=== PATIENT | male | born 1955 | race Caucasian/White ===

== ENCOUNTER 2023-01-23 21:53 | Emergency (ER) | payer MEDICARE, BC ==
[~2023-01-23] VITALS: Ht 188 cm; Wt 100.0 kg
[2023-01-23 22:26] LABS: CLARITY,URINE CLEAR (Clear); COLOR,URINE YELLOW (Yellow); GLUCOSE, URINE NEGATIVE (Neg); KETONES,URINE NEGATIVE (Neg); LEUKOCYTE ESTERASE ,URINE NEGATIVE (Neg); NITRITES, URINE NEGATIVE (Neg); OCCULT BLOOD,URINE MODERATE (Neg); PROTEIN,URINE NEGATIVE (Neg); UROBILINOGEN,URINE 0.2 E.U/dL (0.2-1.0)
[2023-01-23 22:29] LABS: UA COLLECTION TYPE CLN CATCH MIDSTREAM
[2023-01-23 22:31] LABS: BACTERIA,URINE NONE SEEN /HPF (Neg); MUCUS STRANDS NONE SEEN /LPF (Neg); SQUAMOUS EPITHELIAL CELL,UR FEW /LPF (FEW); WBC,URINE 0-4 /HPF (0-4)
[2023-01-23] MEDS ORDERED: morphine 4 MG/ML inj SYRINge IV ONE (22:35)
[2023-01-23] MEDS ORDERED: ondansetron/PF 4mg/2ml inj IV ONE (22:35)
[2023-01-23] MEDS ORDERED: normal saline 1000ml 1,000 ML IV ONE (22:35)
[2023-01-23 23:02] LABS: EOSINOPHILS # (AUTO) 0.2 X10'3 (0-0.9); LYMPHOCYTES # (AUTO) 0.3 X10'3 (1.1-4.8); WHITE BLOOD COUNT 4.9 X10'3 (4.5-11.0)
[2023-01-23 23:04] LABS: BASOPHILS % (AUTO) 0.8 % (0-1); EOSINOPHILS % (AUTO) 4.4 % (0-6); HEMATOCRIT 39.8 % (42.0-52.0); HEMOGLOBIN 13.5 g/dl (14.0-17.9); LYMPHOCYTES % (AUTO) 6.8 % (21-51); MEAN CORPUSCULAR HEMOGLOBIN 29.3 PG (27.0-31.0); MEAN CORPUSCULAR HGB CONC 33.8 g/dL (33.0-36.5); MEAN CORPUSCULAR VOLUME 86.6 FL (78-98); MEAN PLATELET VOLUME 8.2 FL (7.4-10.4); MONOCYTES # (AUTO) 0.7 X10'3 (0-0.9); MONOCYTES % (AUTO) 13.7 % (2-12); NEUTROPHILS # (AUTO) 3.7 X10'3 (1.8-7.7); NEUTROPHILS % (AUTO) 74.3 % (42-75); PLATELET COUNT 220 X10'3 (140-440); RED CELL DISTRIBUTION WIDTH 14.7 % (11.5-14.5)
[2023-01-23 23:22] LABS: ALANINE AMINOTRANSFERASE 25 U/L (12-78); ALBUMIN 2.8 G/DL (3.4-5.0); ALBUMIN/GLOBULIN RATIO 0.7 (1.1-1.5); ALKALINE PHOSPHATASE 71 IU/L (46-116); ANION GAP 5 (8-16); ASPARTATE AMINO TRANSFERASE 16 U/L (10-37); BILIRUBIN,TOTAL 0.3 MG/DL (0.1-1.0); BLOOD UREA NITROGEN 29 MG/DL (7-18); BUN/CREATININE RATIO 22.5 (10.0-20.0); CALCIUM 9.3 MG/DL (8.5-10.1); CHLORIDE 107 MMOL/L (99-107); CREATININE 1.29 MG/DL (0.60-1.10); GLUCOSE 142 MG/DL (70-104); LIPASE 161 U/L (73-393); POTASSIUM 4.2 MMOL/L (3.5-5.1); SODIUM 140 MMOL/L (135-145); TOTAL CARBON DIOXIDE 27.7 MMOL/L (24-32); TOTAL PROTEIN 6.6 G/DL (6.4-8.2); eGFR 55 ML/MIN
[2023-01-23 23:30] VITALS: BP 160/88
[2023-01-24] MEDS ORDERED: oxyCODONE/APAP 10/325mg tablet PO ONE (00:05)
[2023-01-24] MEDS ORDERED: OXYC-150 PO (00:07)
== END 2023-01-24 00:25 | disposition home or self-care (01) ==
LOC: ER 21:56
DX: N20.9 Urinary calculus, unspecified (principal); Z79.899 Other long term (current) drug therapy
CPT/HCPCS: 36415; 74176; 80053; 81001; 83690; 85025; 96361; 96374; 96375; 99285; J2270; J2405; J7030

== ENCOUNTER 2023-11-29 15:24 | Emergency (ER) | payer MEDICARE, BC ==
[~2023-11-29] VITALS: Ht 188 cm; Wt 114.1 kg
[~2023-11-29 15:24] MED LIST: OXYC-150 PO
[2023-11-29 17:39] VITALS: TEMP 98.3
[2023-11-29 19:29] LABS: LYMPHOCYTES # (AUTO) 0.5 X10'3 (1.1-4.8); MONOCYTES # (AUTO) 0.6 X10'3 (0-0.9); WHITE BLOOD COUNT 3.1 X10'3 (4.5-11.0)
[2023-11-29 19:31] LABS: BASOPHILS # (AUTO) 0.1 X10'3 (0-0.2); BASOPHILS % (AUTO) 1.8 % (0-1); EOSINOPHILS # (AUTO) 0.3 X10'3 (0-0.9); EOSINOPHILS % (AUTO) 8.7 % (0-6); HEMOGLOBIN 15.5 g/dl (14.0-17.9); LYMPHOCYTES % (AUTO) 16.6 % (21-51); MEAN CORPUSCULAR HEMOGLOBIN 29.1 PG (27.0-31.0); MEAN CORPUSCULAR HGB CONC 34.5 g/dL (33.0-36.5); MEAN CORPUSCULAR VOLUME 84.2 FL (78-98); MEAN PLATELET VOLUME 8.3 FL (7.4-10.4); MONOCYTES % (AUTO) 18.5 % (2-12); NEUTROPHILS # (AUTO) 1.7 X10'3 (1.8-7.7); NEUTROPHILS % (AUTO) 54.4 % (42-75); PLATELET COUNT 182 X10'3 (140-440); RED BLOOD COUNT 5.34 X10'6 (4.70-6.10); RED CELL DISTRIBUTION WIDTH 13.6 % (11.5-14.5)
[2023-11-29 19:44] LABS: ALANINE AMINOTRANSFERASE 31 U/L (12-78); ALBUMIN 3.8 G/DL (3.4-5.0); ALBUMIN/GLOBULIN RATIO 1.2 (1.1-1.5); ALKALINE PHOSPHATASE 110 IU/L (46-116); ANION GAP 6 (8-16); ASPARTATE AMINO TRANSFERASE 22 U/L (10-37); BILIRUBIN,TOTAL 0.4 MG/DL (0.1-1.0); BLOOD UREA NITROGEN 18 MG/DL (7-18); BUN/CREATININE RATIO 16.1 (10.0-20.0); CALCIUM 8.8 MG/DL (8.5-10.1); CHLORIDE 109 MMOL/L (99-107); CREATININE 1.12 MG/DL (0.60-1.10); GLUCOSE 123 MG/DL (70-104); POTASSIUM 4.3 MMOL/L (3.5-5.1); SODIUM 141 MMOL/L (135-145); TOTAL CARBON DIOXIDE 26.4 MMOL/L (24-32); TOTAL PROTEIN 7.1 G/DL (6.4-8.2); eCRCL 71 ML/MIN; eGFR 65 ML/MIN
[2023-11-29 19:50] LABS: FREE T4 (FREE THYROXINE) 0.86 NG/DL (0.73-1.40); THYROID STIMULATING HORMONE 1.92 ulU/ml (0.34-4.50)
[2023-11-29 19:53] LABS: C-REACTIVE PROTEIN < 0.05 MG/DL (0.0-0.5)
[2023-11-29 20:14] LABS: LARGE PLATELETS FEW; PLATELET ESTIMATE NORMAL; TOTAL CELLS COUNTED 100
[2023-11-29 22:46] VITALS: BP 125/91; PULSE 74; RESP 18; O2SAT 100
[2023-11-29 22:51] LABS: BILIRUBIN,URINE NEGATIVE (Neg); CLARITY,URINE CLEAR (Clear); COLOR,URINE YELLOW (Yellow); GLUCOSE, URINE NEGATIVE (Neg); KETONES,URINE NEGATIVE (Neg); LEUKOCYTE ESTERASE ,URINE NEGATIVE (Neg); NITRITES, URINE NEGATIVE (Neg); OCCULT BLOOD,URINE NEGATIVE (Neg); PH,URINE 5.5 (4.8-8.0); PROTEIN,URINE NEGATIVE (Neg); UROBILINOGEN,URINE 0.2 E.U/dL (0.2-1.0)
[2023-11-29 22:57] LABS: UA COLLECTION TYPE CLN CATCH MIDSTREAM
== END 2023-11-29 22:49 | disposition home or self-care (01) ==
LOC: ER 15:25
DX: D70.9 Neutropenia, unspecified (principal); R05.9 Cough, unspecified
CPT/HCPCS: 36415; 80053; 81003; 83605; 84439; 84443; 85007; 85025; 85651; 86140; 87040; 99283

== ENCOUNTER 2024-07-08 08:48 | Outpatient (CLI) | payer MEDICARE, BC | END 2024-07-08 23:59 | disposition home or self-care (01) | LOC: US 08:48 | PROVIDERS: ATTEND Student in an Organized Health Care Education/Training Program | DX: N28.1 Cyst of kidney, acquired (principal); N20.0 Calculus of kidney | CPT/HCPCS: 76770 ==

== ENCOUNTER 2024-07-31 09:36 | Outpatient (CLI) | payer MEDICARE, BC ==
[2024-07-25 08:33] LABS: ANION GAP 13 (8-16); BLOOD UREA NITROGEN 36 MG/DL (7-18); CHLORIDE 108 MMOL/L (99-107); CREATININE 5.14 MG/DL (0.60-1.10); GLUCOSE 94 MG/DL (70-104); POTASSIUM 4.4 MMOL/L (3.5-5.1); SODIUM 142 MMOL/L (135-145); TOTAL CARBON DIOXIDE 21.4 MMOL/L (24-32); eGFR 11 ML/MIN
[~2024-07-31 09:36] MED LIST changes: +iohexol 300mg/ml 100ml inj. ONE
== END 2024-07-31 23:59 | disposition home or self-care (01) ==
LOC: RAD 09:36
PROVIDERS: ATTEND Urology
DX: C61 Malignant neoplasm of prostate (principal); R31.0 Gross hematuria; N40.1 Benign prostatic hyperplasia with lower urinary tract symptoms; N41.1 Chronic prostatitis; R97.20 Elevated prostate specific antigen [PSA]; N20.2 Calculus of kidney with calculus of ureter
CPT/HCPCS: 36415; 80048; Q9967